=== PATIENT | female | born 1975 ===

== ENCOUNTER 2021-11-12 19:11 | Emergency (ER) | payer OTHER ==
[~2021-11-12] VITALS: Ht 175.3 cm; Wt 113.6 kg
[2021-11-12 19:15] VITALS: BP 158/91
== END 2021-11-12 22:01 | disposition left against medical advice (07) ==
LOC: EMS 19:13
DX: R06.00 Dyspnea, unspecified (principal); Z53.21 Procedure and treatment not carried out due to patient leaving prior to being seen by health care provider